=== PATIENT | female | born 1955 | race Caucasian/White ===

== ENCOUNTER 2020-11-17 15:01 | Emergency (ER) | payer BC ==
[~2020-11-17] VITALS: Ht 167.6 cm; Wt 131.5 kg
[2020-11-17] MEDS ORDERED: BACITRACIN 1 GM OINT TP ONE (15:41)
[2020-11-17 15:54] LABS: BASOPHILS # (AUTO) 0.4 K/uL (0.0-0.2); BASOPHILS % (AUTO) 4.6 % (0.0-2.0); EOSINOPHILS # (AUTO) 0.2 K/uL (0.0-0.4); EOSINOPHILS % (AUTO) 1.7 % (0.0-4.0); HEMATOCRIT 38.8 % (36-48); HEMOGLOBIN 12.7 g/dL (12.0-16.0); LYMPHOCYTES # (AUTO) 0.6 K/uL (1.0-5.5); LYMPHOCYTES % (AUTO) 6.6 % (20.5-51.5); MEAN CORPUSCULAR HEMOGLOBIN 28 pg (27-31); MEAN CORPUSCULAR HGB CONC 33 % (32-36); MEAN CORPUSCULAR VOLUME 85 fL (79.0-98.0); MONOCYTES # (AUTO) 0.3 K/uL (0.0-1.0); MONOCYTES % (AUTO) 3.9 % (1.7-9.3); NEUTROPHILS # (AUTO) 7.4 K/uL (1.8-7.7); NEUTROPHILS % (AUTO) 83.2 % (40.0-70.0); PLATELET COUNT (AUTO) 237 K/uL (130-430); RED BLOOD CELL COUNT(AUTO) 4.59 MIL/uL (4.2-6.2); WHITE BLOOD COUNT (AUTO) 8.9 K/uL (4.8-10.8)
[2020-11-17 15:55] LABS: ALBUMIN 3.4 g/dL (3.4-4.8); CALCIUM 9.1 mg/dL (8.4-11.0); CREATININE 0.68 mg/dL (0.55-1.30); POTASSIUM 3.9 mmol/L (3.5-5.1); PROTHROMBIN TIME 10.2 SECS (9.5-12.5); TOTAL BILIRUBIN 0.3 mg/dL (0.0-1.0)
[2020-11-17] MEDS ORDERED: IBUP-1969 PO (17:12)
[2020-11-17] MEDS ORDERED: HYDR-3110 PO (17:12)
[2020-11-17 17:25] VITALS: BP_SYST 143
== END 2020-11-17 17:25 | disposition home or self-care (01) ==
LOC: SED 15:01
DX: S80.01XA Contusion of right knee, initial encounter (principal); S00.81XA Abrasion of other part of head, initial encounter; M25.511 Pain in right shoulder; M25.562 Pain in left knee; W01.10XA Fall on same level from slipping, tripping and stumbling with subsequent striking against unspecified object, initial encounter; Y93.89 Activity, other specified; Y92.89 Other specified places as the place of occurrence of the external cause; Y99.8 Other external cause status
CPT/HCPCS: 36415; 70450-TC; 73030; 73564; 73700-TC; 76376; 80053; 82550-TC; 83605; 84484; 85025; 85610-TC; 85730-TC; 99285

== ENCOUNTER 2022-06-29 11:00 | Inpatient (IN) | payer BC ==
[~2022-06-29] VITALS: Ht 167.6 cm; Wt 89.4 kg
[~2022-06-29 11:00] MED LIST: HYDR-4280 PO; IBUP-1969 PO
--- NOTE | 2022-06-29 11:05 | NUR ---
Patient triaged and placed in waiting room. VSS and patient appears in no acute distress at this time. Accompanied by SELF, awaiting available bed, and MD notified of need for MSE.
[2022-06-29 11:25] VITALS: BP_SYST 164
--- NOTE | 2022-06-29 11:49 | NUR ---
Placed in room 6 . Placed on labor economics professor, blood pressure machine and pulse oximeter. To gown for exam. Side rails up. Report given to MATT NUÑEZ.
--- NOTE | 2022-06-29 12:05 | NUR ---
AMISH CARVAJAL at bedside examining patient.
--- NOTE | 2022-06-29 12:10 | NUR ---
Pt come from home, ambulatory to hospital, c/o low HR. found to have HR 40' . PT is AOx4, no acute distress, respiratory even unlabored. C/o 2/10 middle chest pressure. No other complain and stated " I feel good". Denies sob, N/V, STEIN, blurry vision, weakness. Skin clean dry and intact. Pulses +2. MD at bed side for eval.
[2022-06-29 12:37] LABS: BASOPHILS # (AUTO) 0.1 K/uL (0.0-0.2); BASOPHILS % (AUTO) 1.1 % (0.0-2.0); EOSINOPHILS # (AUTO) 0.1 K/uL (0.0-0.4); EOSINOPHILS % (AUTO) 2.7 % (0.0-4.0); HEMATOCRIT 39.9 % (36-48); LYMPHOCYTES % (AUTO) 22.5 % (20.5-51.5); MEAN CORPUSCULAR VOLUME 88 fL (79.0-98.0); MONOCYTES # (AUTO) 0.3 K/uL (0.0-1.0); MONOCYTES % (AUTO) 7.3 % (1.7-9.3); NEUTROPHILS % (AUTO) 66.4 % (40.0-70.0); PLATELET COUNT (AUTO) 179 K/uL (130-430); RED BLOOD CELL COUNT(AUTO) 4.56 MIL/uL (4.2-6.2); RED CELL DISTRIBUTION WIDTH 13.9 % (9.0-15.0); WHITE BLOOD COUNT (AUTO) 4.5 K/uL (4.8-10.8)
--- NOTE | 2022-06-29 13:19 | NUR ---
Medication reconciliation completed with information provided by PATIENT. Any prior medication reconciliation on file was reviewed and corrected.
--- NOTE | 2022-06-29 13:19 | NUR ---
Admit bed requested Patient will be admitted to care of . Admitted to TELE unit. Diagnosis CHEST PAIN, BRADYCARDIA Inpatient (Yes or No) YES Observation (Yes or No) NO Orientation concerns or request close to nursing station (Yes or No) NO Covid Status PENDING On vent or bipap NO Isolation requirements NO Needs a sitter NO From Home (Yes or if No enter name of facility) HOME Requires Dialysis (Yes or No) NO Med Rec Completed (Yes of No) YES
[2022-06-29 14:20] LABS: PROTHROMBIN TIME 10.6 SECS (9.5-12.5)
[2022-06-29 14:26] LABS: ANION GAP 7 (5-15); CALCIUM 8.9 mg/dL (8.4-11.0); CHLORIDE 106 mmol/L (98-107); CREATININE 0.62 mg/dL (0.55-1.30); GLUCOSE 86 mg/dL (70-99); UREA NITROGEN, BLOOD 19 mg/dL (8-21)
[2022-06-29 14:29] LABS: GFR AFRICAN AMERICAN 124 mL/min (>90)
[2022-06-29 14:37] LABS: ALANINE AMINOTRANSFERASE 27 U/L (12-78); ALBUMIN 3.2 g/dL (3.4-4.8); ASPARTATE AMINOTRANSFERASE 17 U/L (10-37); THYROID STIMULATING HORMONE 1.09 uIu/mL (0.36-3.74); TOTAL BILIRUBIN 0.5 mg/dL (0.0-1.0)
[2022-06-29] MEDS ORDERED: ATORVASTATIN 20 MG TABLET PO ONE (15:00)
[2022-06-29] MEDS ORDERED: LOSARTAN POTASSIUM 50 MG TABLET (COZAAR) PO ONE (15:00)
[2022-06-29] MEDS ORDERED: ASPIRIN 81 MG TAB.CHEW PO ONE (15:00)
[2022-06-29] MEDS ORDERED: ACETAMINOPHEN 325 MG TABLET PO PRN (15:00)
--- NOTE | 2022-06-29 15:58 | NUR ---
Pt is admitted to telemetry bed 130. Pt continue AOx4, no acute distress. Denies pain at transfer time. Pt is tranferred via gurney, accompanied by RN and attached to portable monitor. Full report will be given at bed side. meal tray provided to pt, brought to new unit. All belongings are taken with pt to new unit, nothing to be returned.
[2022-06-29 16:05] VITALS: BP_SYST 147
--- NOTE | 2022-06-29 16:05 | NUR ---
ADMISSION NOTE Received patient from ER via gurney. Patient admitted with diagnosis of Chest pain and Bradycardia. Patient is awake, alert, oriented X 4. Patient oriented to hospital room, call light, toileting, pain management and safety-teach back done. Patient informed that their room number is 130B. Personal belongings checked and Belongings List documented. Call light within reach and instructed on how to use.
--- NOTE | 2022-06-29 19:20 | NUR ---
CLOSING NOTES: PATIENT RESTING IN BED. NO S/S OF ACUTE DISTRESS NOTED. DENIES ANY DISCOMFORT AT THIS TIME. NEEDS MET THROUGHOUT SHIFT. ENDORSED TO BLUEPRINT TRACER RN.
[2022-06-29 19:50] VITALS: BP_SYST 147
[2022-06-29] MEDS: ENOXAPARIN SODIUM 40 MG/0.4 ML SYRINGE SUBCUT SCH (21:36)
[2022-06-29] MEDS: LORazepam 1 MG TABLET PO SCH (21:37)
[2022-06-29 22:45] VITALS: BP_SYST 132
--- NOTE | 2022-06-30 | NUR ---
INSTRUCTED ABOUT NPO FOR STRESS TEST
[2022-06-30 04:00] VITALS: BP_SYST 130
[2022-06-30 06:58] LABS: CALCIUM 8.5 mg/dL (8.4-11.0); CREATININE 0.58 mg/dL (0.55-1.30); POTASSIUM 4.3 mmol/L (3.5-5.1)
[2022-06-30 07:13] LABS: ALBUMIN 2.8 g/dL (3.4-4.8); THYROID STIMULATING HORMONE 1.7 uIu/mL (0.36-3.74); TOTAL BILIRUBIN 0.4 mg/dL (0.0-1.0)
--- NOTE | 2022-06-30 07:30 | NUR ---
OPENING NOTE Patient in bed resting with eyes closed, no sign of distress or pain. Breathing is nonlabored and even. Patient is currently NPO and scheduled for a stress test at 0900. All needs met at this time and safety checks made.
[2022-06-30 08:00] VITALS: BP_SYST 125
[2022-06-30] MEDS: LOSARTAN POTASSIUM 50 MG TABLET (COZAAR) PO SCH (09:00)
--- NOTE | 2022-06-30 09:08 | NUR ---
PATIENT LEFT FOR STRESS TEST Patient left for stress test in stable condition
--- NOTE | 2022-06-30 10:00 | NUR ---
PATIENT RETURNED FROM STRESS TEST Patient returned to room in stable condition. All needs met at this time.
[2022-06-30] MEDS ORDERED: THEOPHYLLINE ANHYDROUS 300 MG TAB.SR.12H PO ONE (10:15)
[2022-06-30] MEDS: ASPIRIN 81 MG TAB.CHEW PO SCH (11:24)
[2022-06-30] MEDS: ATORVASTATIN 20 MG TABLET PO SCH (11:25)
--- NOTE | 2022-06-30 14:07 | NUR ---
ROUNDS Patient sitting up at the edge of the bed, eating lunch. Patient has been able to ambulate around the unit, no sign of distress and denies pain. Patient denies shortness of breath while walking. Patient updated on her plan of care, verbalized understanding. All needs met at this time and safety checks made.
--- NOTE | 2022-06-30 16:17 | NUR ---
SPOKE TO MD Spoke to Dr La MD stated that from a cardiac standpoint, patient is cleared to be discharged with Theophylline prescription.
[2022-06-30 18:35] VITALS: BP_SYST 125
--- NOTE | 2022-06-30 19:20 | NUR ---
Opening note Received patient awake, resting in bed and in no distress. She is talking on cell phone. Nonlabored breathing on room air. IV to LFA is SL. Bed is locked in lowest position, side rails up x2, call light w/in reach. Bed alarm is off due to patient has been walking during day and has steady gait. Updated board.
--- NOTE | 2022-06-30 19:31 | NUR ---
CLOSING NOTE Patient ambulating around the room with steady gait, no sign of distress and denies pain. Patient is eager to go home. Updated on her plan of care, verbalized understanding. Breathing is nonlabored and even. Patient's heart rate has been in the 40's and 50's throughout the shift, Dr Tovar is aware. All needs met at this time and safety checks made. Endorsed to operations supervisor 2nd shift nurse.
[2022-06-30 20:00] VITALS: BP_SYST 137
--- NOTE | 2022-06-30 21:42 | NUR ---
Dr. Torres rounds Dr. Torres at bedside to see patient. He was informed Dr. Tovar cleared her for discharge, and he said he will discharge her tomorrow.
[2022-06-30] MEDS: ENOXAPARIN SODIUM 40 MG/0.4 ML SYRINGE SUBCUT SCH (21:45)
[2022-06-30] MEDS: LORazepam 1 MG TABLET PO SCH (21:46)
[2022-07-01 01:29] VITALS: BP_SYST 130
--- NOTE | 2022-07-01 02:45 | NUR ---
rounds late entryP Patient resting w/ eyes closed, no distress. HR is 45 on telemonitor. wctm
--- NOTE | 2022-07-01 07:20 | NUR ---
closing note Patient resting in comfortable position. She has eye mask covering her eyes, and soft music playing. She is stable, will endorse.
--- NOTE | 2022-07-01 07:30 | NUR ---
OPENING NOTE Patient in bed resting with eyes closed, breathing is nonlabored and even. Heart rate is 54 at rest. All needs met at this time and safety checks made.
[2022-07-01 08:00] VITALS: BP_SYST 114
[2022-07-01] MEDS ORDERED: THEOPHYLLINE ANHYDROUS 300 MG TAB.SR.12H PO SCH (09:00)
[2022-07-01] MEDS: LOSARTAN POTASSIUM 50 MG TABLET (COZAAR) PO SCH (09:00)
[2022-07-01] MEDS: ATORVASTATIN 20 MG TABLET PO SCH (09:15)
[2022-07-01] MEDS: ASPIRIN 81 MG TAB.CHEW PO SCH (09:15)
--- NOTE | 2022-07-01 13:33 | NUR ---
ROUNDS Patient sitting up at the side of the bed eating lunch, no sign of distress and denies pain. Patient is anxious to be discharged home. Patient is updated on her plan of care, verbalized understanding. Heart rate is 48 at rest. Patient has been ambulating around the room and around the unit with steady gait. All needs met at this time and safety checks made.
[2022-07-01 14:56] VITALS: BP_SYST 103
[2022-07-01 16:55] VITALS: BP_SYST 134
--- NOTE | 2022-07-01 17:08 | NUR ---
ROUNDS Patient resting in bed, no sign of distress and denies pain. Patient has been walking around the unit, heart rate increases to mid to low 50's with activity. Patient denies shortness of breath or dizziness. All needs met at this time and safety checks made.
[2022-07-01 17:56] VITALS: BP_SYST 134
--- NOTE | 2022-07-01 18:30 | NUR ---
D/C Patient Patient given medication reconciliation form and D/C instructions. Exit Care provided. Patient verbalized understanding. MD discussed with patient the results and treatment provided. Ambulatory with steady gait for discharge to home via private auto with family. Patient in stable condition, ID band removed. IV catheter removed, intact and dressing applied, no active bleeding. Rx of Theophyline given. Patient educated on pain management. All belongings sent with patient.
== END 2022-07-01 18:30 | disposition home or self-care (01) | DRG 310 ==
LOC: SED 11:00 → STU 13:07
PROVIDERS: ADMIT Family Medicine; ATTEND Family Medicine
DX: I44.0 Atrioventricular block, first degree (principal); E78.5 Hyperlipidemia, unspecified; I10 Essential (primary) hypertension; Z20.822 Contact with and (suspected) exposure to COVID-19; E11.9 Type 2 diabetes mellitus without complications; Z85.42 Personal history of malignant neoplasm of other parts of uterus; Z87.891 Personal history of nicotine dependence; Z90.710 Acquired absence of both cervix and uterus; Z98.84 Bariatric surgery status
CPT/HCPCS: 36415; 71045; 80053; 80061; 83735; 83880; 84443; 84484; 85025; 85610-TC; 85730-TC; 93005; 93017; 93306; G0378; J1650